=== PATIENT | female | born 1975 | race Two or more races ===

== ENCOUNTER → 2018-09-29 | Outpatient (CLI) | payer OTHER | END | disposition home or self-care (01) | LOC: MRI 11:13 | DX: N92.1 Excessive and frequent menstruation with irregular cycle (principal); N80.0 Endometriosis of uterus | CPT/HCPCS: 72197 ==

== ENCOUNTER 2021-01-04 10:04 | Emergency (ER) | payer OTHER ==
[~2021-01-04] VITALS: Ht 162.6 cm; Wt 56.7 kg
[2021-01-04] MEDS ORDERED: TAMOXIFEN CITRA20 MG (10:30)
== END 2021-01-04 14:25 | disposition home or self-care (01) ==
LOC: ER 10:04
DX: N39.0 Urinary tract infection, site not specified (principal)